=== PATIENT | male | born 1940 | race Asian ===

== ENCOUNTER 2021-05-05 21:24 | Observation (INO) ==
--- NOTE | 2021-05-05 21:50 | Emergency Department Note ---
Impression & Plan Brain TIA, History of atrial fibrillation, Expressive aphasia ED Provider Note NAME: LEANA ATWOOD AGE: 80 SEX: M : 1940 ARRIVES VIA: Ambulance INFORMANT: Patient, ED PROVIDER(S): Faraz Miranda MD Chief Complaint: HPI: Patient presents due to concern for difficulty with speech with the patient states that he knew what to say but had difficulty saying it approximate 1 hour ago for approximate 6 or 7 minutes. Patient denies any fever chills chest pain shortness of breath nausea or vomiting. No recent falls or headaches. The patient does have a history of taking Eliquis for history of A. fib. Patient denies any current symptoms at this time. No prior history of TIA or stroke. Patient denies any alcohol or tobacco use. Patient denies any nausea vomiting. ROS: See HPI for pertinent positives and negatives. A total of 10 systems were reviewed and otherwise negative. Past medical history: See below Surgical history: See below Social history: See below Physical Exam: GENERAL: NAD, wearing a mask, non-toxic. Wearing a Steelers knit cap. EYE EXAM: Normal conjunctiva. PERRL, no anisocoria and EOM's grossly intact w/o pain. OROPHARYNX: Moist mucus membranes. Grossly normal dentition. NECK: Supple, no nuchal rigidity, no adenopathy, non-tender. No signs of meningismus. LUNGS: Clear to auscultation. Normal chest wall mechanics. HEART: NSR, no MRG. ABDOMEN: Abdomen soft, non-tender, normo-active bowel sounds, no masses, no rebound or guarding. BACK: No CVA TTP. SKIN: No rashes and no bruising. UPPER EXTREMITIES: Upper extremities are grossly normal. LOWER EXTREMITIES: Grossly normal, no edema. NEURO EXAM: A&O x3, cranial nerves II-XII grossly intact, normal speech, moves all 4 extremities on command w/o issue. Good finger to nose, no drift, no sensory deficits. Differential diagnoses: Infection, dehydration, metabolic abnormality, hypo/hyperglycemia, electrolyte disturbance, anemia, hypoxia, cardiac sources, intracerebral event, toxicologic, neurologic, as well as other pathologies. Course: Patient was seen and evaluated the bedside. Full history physical exam was performed. EKG interpreted by me Normal sinus rhythm, rate of 65, borderline TN 200 with normal QRS, normal axis, no obvious ST changes, T wave inversion in lead III. Imaging Studies: See Below Cardiac monitoring: An order was placed for continuous cardiac monitoring. The monitor shows a rate of 72 with sinus rhythm. MDM: Patient presented due to concern for brief episode of expressive aphasia. Blood work was obtained along with CT head and CT angiography his head and neck. Patient has a normal white count and hemoglobin. Platelet count is unremarkable. The patient's kidney function is unremarkable with mild hyperglycemia at 125 although this is not a fasting glucose. CT head CT angiography head and neck negative for acute ICH mass dissection or aneurysm. Patient has had no recurrence of symptoms. Given the patient's history of expressive aphasia believe it reasonable for further observation and treatment and to be seen by neurology. I did speak with the on-call hospitalist Dr. Cooney and the patient was admitted to the medicine service. I did convey the recommendation and findings to the patient and the patient is amenable to further treatment. I did offer to speak with his family but he declined. Past Med/Surg History Medical History Atrial fibrillation BPH (benign prostatic hyperplasia) Environmental allergies History of asthma NO INHALER Osteoarthritis Surgical History History of cataract surgery RT/LEFT History of colonoscopy History of endoscopic sinus surgery History of herniorrhaphy Hx of LASIK Hx of transurethral resection of prostate Family History Other No family history of adverse response to anesthesia No family history of bleeding disorder Social History Smoking Status: Never smoker Second Hand Exposure: No; Hx Alcohol Use: Yes Alcohol type: beer Hx Substance Use: No Preferred Language: Mexican Communication Ability: Effective Polysomnographic Technologist Required: No Beliefs That Will Affect Care: None Current Living Situation: Spouse Feels Safe at Home: Yes Assistive Devices: None and Hearing Aid - Left Allergies Allergies Allergy/AdvReac Type Severity Reaction Status Date / Time pollen extracts Allergy Mild Sneezing Verified 05/05/21 22:43 Home Meds Home Medications Medication Instructions Recorded Confirmed qgnqppzs-iuv-rtoih acid 300 1 tab PO QAM 05/28/20 05/05/21 mcg-lycopene 600 mcg-lutein 300 mcg tablet (Centrum Silver Men) potassium gluconate 595 mg (99 mg) 595 mg PO QAM 05/28/20 05/05/21 tablet apixaban 2.5 mg tablet (Eliquis) 2.5 mg PO BID 05/05/21 05/05/21 omega-3 fatty acids 1,000 mg 1,000 mg PO DAILY 05/05/21 05/05/21 capsule Results & Data (ED) Vital Signs Vital Signs - 24 hr 05/05/21 21:46 05/05/21 21:54 05/05/21 21:56 Temperature 36.4 C L Temperature Source Oral Pulse Rate 67 62 Pulse Rate [Apical] 62 Pulse Rhythm Regular Regular Pulse Rhythm [Apical] Regular Pulse Strength Normal Pulse Strength [Apical] Normal Respiratory Rate 23 18 18 Respiratory Effort / Characteristics Non-Labored Nasal Congestion Non-Labored Respiratory Depth Normal Normal Blood Pressure 158/84 H Blood Pressure [Right Arm] 123/71 Blood Pressure Mean 108 Blood Pressure Mean [Right Arm] 88 Blood Pressure Position Lying Blood Pressure Position [Right Arm] Lying Pulse Oximetry 98 97 95 Oxygen Delivery Method Room Air Room Air Room Air Sepsis Recent Fever Within 48 Hours No Sepsis New/Unexplained Change in Mental Status N/A Sepsis Action Taken by Nursing No Action Required Home Medications Current Medication List: was personally reviewed by me Laboratory Data Attestation: I reviewed the patient's lab results. Result diagrams: 05/05/21 21:38 05/05/21 21:38 Lab Results 05/05/21 05/05/21 05/05/21 Range/Units 21:38 21:38 21:38 WBC 6.53 (4.8-10.8) K/uL RBC 4.73 (4.7-6.1) M/uL Hgb 14.3 (14.0-18.0) g/dL Hct 41.9 L (42-52) % MCV 88.6 (80-100) fL MCH 30.2 (25-34) pg MCHC 34.1 (32-36) g/dL RDW Std Deviation 39.0 (36.4-46.3) fL RDW Coeff of Rob 12.1 (11.5-14.5) % Plt Count 258 (130-400) K/uL MPV 10.1 (7.4-10.4) fL Immature Gran % (Auto) 0.2 % Neut % (Auto) 48.7 % Lymph % (Auto) 33.5 % [place] % (Auto) 8.7 % Eos % (Auto) 8.3 % Baso % (Auto) 0.6 % Neut # (Auto) 3.18 (1.4-6.5) K/uL Lymph # (Auto) 2.19 (1.2-3.4) K/uL [place] # (Auto) 0.57 (0.11-0.59) K/uL Eos # (Auto) 0.54 H (0-0.5) K/uL Baso # (Auto) 0.04 (0-0.2) K/uL Immature Gran # (Auto) 0.01 (0.00-0.02) K/uL PT 9.9 (9.0-12.0) Seconds INR 1.0 (0.9-1.1) APTT 26.5 (21.0-31.0) Seconds PTT Ratio 1.0 Sodium 140 (136-145) mmol/L Potassium 4.1 (3.5-5.1) mmol/L Chloride 103 (98-107) mmol/L Carbon Dioxide 31 (21-32) mmol/L Anion Gap 6 (3-11) BUN 15 (6-23) mg/dl Creatinine 0.82 (0.6-1.4) mg/dl Est Cr Clr Drug Dosing 59.2 ml/min Est GFR ( Amer) 95.4 ml/min Est GFR (Non-Af Amer) 82.4 ml/min BUN/Creatinine Ratio 18.3 (10-20) Glucose 130 H (70-99(Fasting)) mg/dl POC Glucose (70-99) mg/dl Calcium 9.5 (8.5-10.1) mg/dl Magnesium 2.0 (1.7-2.4) mg/dl Total Bilirubin 0.3 (0.2-1.0) mg/dl AST 27 (13-39) U/L ALT 16 (7-52) U/L Alkaline Phosphatase 70 (34-104) U/L Troponin I 0.03 (0-0.04) ng/ml Total Protein 6.9 (6.0-8.3) gm/dl Albumin 4.4 (3.4-5.0) gm/dl Globulin 2.5 (2.5-4.0) gm/dl Albumin/Globulin Ratio 1.8 (0.9-2) 05/05/21 Range/Units 22:00 WBC (4.8-10.8) K/uL RBC (4.7-6.1) M/uL Hgb (14.0-18.0) g/dL Hct (42-52) % MCV (80-100) fL MCH (25-34) pg MCHC (32-36) g/dL RDW Std Deviation (36.4-46.3) fL RDW Coeff of Rob (11.5-14.5) % Plt Count (130-400) K/uL MPV (7.4-10.4) fL Immature Gran % (Auto) % Neut % (Auto) % Lymph % (Auto) % [place] % (Auto) % Eos % (Auto) % Baso % (Auto) % Neut # (Auto) (1.4-6.5) K/uL Lymph # (Auto) (1.2-3.4) K/uL [place] # (Auto) (0.11-0.59) K/uL Eos # (Auto) (0-0.5) K/uL Baso # (Auto) (0-0.2) K/uL Immature Gran # (Auto) (0.00-0.02) K/uL PT (9.0-12.0) Seconds INR (0.9-1.1) APTT (21.0-31.0) Seconds PTT Ratio Sodium (136-145) mmol/L Potassium (3.5-5.1) mmol/L Chloride (98-107) mmol/L Carbon Dioxide (21-32) mmol/L Anion Gap (3-11) BUN (6-23) mg/dl Creatinine (0.6-1.4) mg/dl Est Cr Clr Drug Dosing ml/min Est GFR ( Amer) ml/min Est GFR (Non-Af Amer) ml/min BUN/Creatinine Ratio (10-20) Glucose (70-99(Fasting)) mg/dl POC Glucose 125 H (70-99) mg/dl Calcium (8.5-10.1) mg/dl Magnesium (1.7-2.4) mg/dl Total Bilirubin (0.2-1.0) mg/dl AST (13-39) U/L ALT (7-52) U/L Alkaline Phosphatase (34-104) U/L Troponin I (0-0.04) ng/ml Total Protein (6.0-8.3) gm/dl Albumin (3.4-5.0) gm/dl Globulin (2.5-4.0) gm/dl Albumin/Globulin Ratio (0.9-2) Administered Medications Discontinued Medications Ioversol (Optiray 320 125ml) 120 ml IV ONCE ONE Stop: 05/05/21 22:47 Last Admin: 05/05/21 22:47 Dose: 120 ml Documented by: [id number] Imaging Data Radiologist's Impression: CT HEAD: Mucosal thickening in the remaining ethmoid air cells suggesting mild chronic sinusitis. There are signs of previous sinus surgery. No gas fluid levels are seen. There is a trace amount of chronic appearing mucosal thickening in the frontal and left maxillary sinuses. The mastoid air cells are normal. No skull fracture or scalp hematoma is seen. Mild central atrophy and periventricular white matter low density consistent with chronic small vessel disease. There is no evidence of acute large vessel infarct or intra-cranial hemorrhage. CTA HEAD: Mucosal thickening throughout the maxillary and ethmoid sinuses consistent with acute on chronic sinusitis. The distal vertebral and basilar arteries are mildly tortuous but widely patent with no atherosclerotic plaque or stenosis. The distal internal carotid, anterior, middle, and posterior cerebral arteries appear within normal limits. No atherosclerotic plaque, aneurysm, vascular formation, or arterial thrombus is identified CTA NECK: Normal CT angiogram of the neck. Radiologist: Ish Schaeffer MD Discharge Plan Visit Data Chief Complaint: TIA Symptoms Stated Complaint: slurred speech Discharge Problem: Brain TIA, History of atrial fibrillation, Expressive aphasia Patient Disposition: Admitted As Inpatient Forms Stand Alone Forms: My [facility] Prescriptions Prescriptions: No Action potassium gluconate 595 mg (99 mg) Tablet 595 mg PO QAM RF: 0 Centrum Silver Men 300-600-300 mcg Tablet 1 tab PO QAM RF: 0 omega-3 fatty acids 1,000 mg Capsule 1,000 mg PO DAILY RF: 0 Eliquis 2.5 mg tablet 2.5 mg PO BID RF: 0 Referrals Referrals: Brenden Thomson DO [Primary Care Provider] -
[2021-05-05 22:00] LABS: Basophils # (auto) 0.04 K/uL (0-0.2); Basophils % (auto) 0.6 %; Eosinophils # (auto) 0.54 K/uL (0-0.5); Eosinophils % (auto) 8.3 %; Hematocrit (blood only) 41.9 % (42-52); Hemoglobin 14.3 g/dL (14.0-18.0); Immature Granulocytes # (auto) 0.01 K/uL (0.00-0.02); Immature Granulocytes % (auto) 0.2 %; Lymphocytes # (auto) 2.19 K/uL (1.2-3.4); Lymphocytes % (auto) 33.5 %; Mean Corpuscular Hemoglobin 30.2 pg (25-34); Mean Corpuscular Hgb Conc 34.1 g/dL (32-36); Mean Corpuscular Volume 88.6 fL (80-100); Mean Platelet Volume 10.1 fL (7.4-10.4); Monocytes # (auto) 0.57 K/uL (0.11-0.59); Monocytes % (auto) 8.7 %; Neutrophils # (auto) 3.18 K/uL (1.4-6.5); Neutrophils % (auto) 48.7 %; Platelet Count 258 K/uL (130-400); RDW Coefficient of Variation 12.1 % (11.5-14.5); Red Blood Count 4.73 M/uL (4.7-6.1); White Blood Count 6.53 K/uL (4.8-10.8)
[2021-05-05 22:08] LABS: Partial Thromboplastin Time 26.5 Seconds (21.0-31.0); Prothrombin Time 9.9 Seconds (9.0-12.0)
[2021-05-05 22:20] LABS: Albumin Globulin Ratio 1.8 (0.9-2); Albumin Level 4.4 gm/dl (3.4-5.0); BUN Creatinine Ratio 18.3 (10-20); Bilirubin,Total 0.3 mg/dl (0.2-1.0); Calcium 9.5 mg/dl (8.5-10.1); Creatinine Clr Calc Pharmacy 59.2 ml/min; Est GFR (African American) 95.4 ml/min; Est GFR (Non-African American) 82.4 ml/min; Globulin 2.5 gm/dl (2.5-4.0); Potassium 4.1 mmol/L (3.5-5.1); Total Protein 6.9 gm/dl (6.0-8.3)
[2021-05-05 22:21] LABS: Troponin I 0.03 ng/ml (0-0.04)
[2021-05-05] MEDS ORDERED: OPTIRAY 320 125ml IV ONE (22:46)
[2021-05-06] MEDS ORDERED: ACETAMINOPHEN 325 MG TAB PO PRN (02:59)
[2021-05-06] MEDS ORDERED: ONDANSETRON INJ 2 MG/ML 2 ML VIAL IV PRN (02:59)
[2021-05-06] MEDS ORDERED: SODIUM CHLORIDE 0.9% 1000ML 1,000 ML IV SCH (02:59)
[2021-05-06] MEDS ORDERED: NITROGLYCERIN SL 0.4 MG/TAB TAB SL PRN (02:59)
[2021-05-06] MEDS ORDERED: PHARMACIST DISCHARGE MED REC CONSULT PRN (02:59)
[2021-05-06] MEDS ORDERED: GADOBUTROL 65ML VIAL IV ONE (04:29)
[2021-05-06 06:16] LABS: Basophils # (auto) 0.05 K/uL (0-0.2); Eosinophils % (auto) 9.7 %; Hematocrit (blood only) 39.4 % (42-52); Hemoglobin 13.3 g/dL (14.0-18.0); Immature Granulocytes # (auto) 0.01 K/uL (0.00-0.02); Immature Granulocytes % (auto) 0.2 %; Lymphocytes # (auto) 1.56 K/uL (1.2-3.4); Lymphocytes % (auto) 30.2 %; Mean Corpuscular Hgb Conc 33.8 g/dL (32-36); Mean Corpuscular Volume 88.9 fL (80-100); Mean Platelet Volume 10.2 fL (7.4-10.4); Monocytes # (auto) 0.65 K/uL (0.11-0.59); Monocytes % (auto) 12.6 %; Neutrophils % (auto) 46.3 %; Platelet Count 236 K/uL (130-400); RDW Coefficient of Variation 12.3 % (11.5-14.5); RDW Standard Deviation 39.5 fL (36.4-46.3); Red Blood Count 4.43 M/uL (4.7-6.1); White Blood Count 5.17 K/uL (4.8-10.8)
[2021-05-06 06:28] LABS: BUN Creatinine Ratio 20.8 (10-20); Calcium 8.6 mg/dl (8.5-10.1); Chol HDL Ratio 2.8 (0-5); Creatinine Clr Calc Pharmacy 67.5 ml/min; Est GFR (African American) 100.7 ml/min; Est GFR (Non-African American) 86.9 ml/min; Potassium 4.2 mmol/L (3.5-5.1)
[2021-05-06 07:13] LABS: Estimated Average Glucose 120 mg/dl; Hemoglobin A1C 5.8 % (4.5-5.6)
--- NOTE | 2021-05-06 07:40 | CT Scan Report ---
CT OF THE HEAD WITHOUT CONTRAST CLINICAL HISTORY: Stroke Like Symptoms. Slurred speech. COMPARISON STUDY: Sinus CT April 30, 2020. TECHNIQUE: Helical axial images of the head were obtained without IV contrast. Automated exposure con trol was utilized for the study. A dose lowering technique was utilized adhering to the principles o f ALARA. FINDINGS: No acute intracranial hemorrhage, midline shift or mass effect is present. The ventricular system is unremarkable. The basal cisterns are patent. No extra-axial collections are present. There are no findings to suggest acute dural sinus thrombosis or acute territorial infarct. No significant calvarial abnormalities are present. Mild to moderate sinus mucosal thickening is noted. IMPRESSION: No acute intracranial findings. ACT 112: Negative or not required by law. Electronically signed by: Iain Saeed M.D. 05/06/2021 7:38 AM
--- NOTE | 2021-05-06 07:56 | Magnetic Resonance Report ---
MR brain wo/w con CLINICAL HISTORY: tia. Difficulty with speech COMPARISON STUDY: CT brain from 05/05/2021 TECHNIQUE: Multiplanar multisequence images of the brain were performed before and after Gadavist, 6 mL of IV contrast. Diffusion weighted imaging and ADC mapping was also performed. FINDINGS: Extra-axial space: There is no evidence for a subdural hematoma, There are no extra-axial fluid erinn ections. Ventricles and cisterns: The ventricles are mildly dilated bilaterally. There is no evidence for mid line shift or mass effect. Parenchyma: On noncontrast images, there is no evidence for an acute hemorrhage or infarct. No acute diffusion abnormalities are noted on diffusion weighted imaging or ADC mapping. There is normal boudreaux -white differentiation. There is mild cerebral cortical atrophy present. The sulci and gyri appear no rmal without effacement. The midline structures are unremarkable. The posterior fossa structures appe ar normal. On postcontrast images, there is no evidence for enhancing mass lesion. Osseous structures: There is mucosal thickening seen throughout all of the paranasal sinuses charact eristic of pansinusitis. No fluid levels are present. The mastoid air cells are well aerated. Soft tissues: No focal soft tissue abnormalities are identified. IMPRESSION: No acute intracranial abnormalities. Mild cerebral cortical atrophy. Pansinusitis. ACT 112: Negative or not required by law. Electronically signed by: Julius Duckworth M.D. 05/06/2021 7:55 AM
--- NOTE | 2021-05-06 08:00 | History and Physical Report ---
DATE OF ADMISSION: 05/05/2021. CHIEF COMPLAINT: Transient expressive aphasia. 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 At that time, workup included a negative carotid duplex, negative MRI/MRA of the brain and echocardiogram. Although there was some atrial septum noted and aneurysm on echocardiogram, there was no shunt noted. Left atrium was noted to be moderately dilated as per Cardiology notes. He had monitor placed , which showed paroxysmal atrial fibrillation, 5% AFib burden, and he was placed on Eliquis, which the patient says he is taking, and today on 05/05/2021 evening he had a pizza and he slept for half an hour and around 8:00 or 8:30, when his son called he lifted the phone, but he was not able to speak for 7 to 8 minutes. He gave the phone to his and after 7 to 8 minutes, he was fine, back to his normal self. Currently asymptomatic. The initial workup with CTA of the head and neck and CT of the head was unremarkable. Resting comfortably, hemodynamically stable. The patient states he is very active. He goes to the gym every day. He jogs and on alternate days he lifts weights. He says he takes care of himself very well. He has some mild headache. He has some issues with the throat. He is not able to tolerate spices anymore. No blurred visions, no earache, no runny nose, no nausea, no vomiting, no chest pain, no shortness of breath. Currently, no cough, no fever, no chills, no abdominal pain. Normal bowel and bladder movements. No swelling in the legs. The patient is COVID vaccinated and boosted. ALLERGIES: POLLEN EXTRACTS. PAST MEDICAL HISTORY: As mentioned above. PAST SURGICAL HISTORY: Colonoscopy, cystoscopy, knee arthroscopy, needle punch biopsy of the prostate, TURP, inguinal hernia repair. MEDICATIONS: The patient is on Eliquis 2.5 mg p.o. b.i.d., Centrum silver 1 tablet daily, omega 3 fatty acid 1000 mg p.o. daily, potassium gluconate 595 mg p.o. a.m. FAMILY HISTORY: Significant for father had renal failure, fatal CT at age 75; brother has heart attack; another brother has asthma; mother in sleep at age of 87. SOCIAL HISTORY: , no smoking. Alcohol, one to two beers a week. No drug use. REVIEW OF SYSTEMS: As per HPI. Rest of the review of systems is negative. PHYSICAL EXAMINATION: GENERAL: The patient is of moderate build, not in acute distress. VITAL SIGNS: Temperature 36.4, pulse 62, respiratory rate 18, blood pressure 123/71, oxygen 95% on room air. HEENT: Pupils equal, round, and reactive to light. Oral mucosa moist. NECK: No JVD. No neck masses. CARDIOVASCULAR: S1 and S2 heard. Regular rate and rhythm. No murmur, no gallop. RESPIRATORY SYSTEM: Normal AP diameter. No accessory muscle use. No wheezing, no crackles. ABDOMEN: Soft, bowel sounds present, nontender, no distention. CENTRAL NERVOUS SYSTEM: Alert and oriented. Speech is clear. No facial droop seen. Able to raise his brow. Power 5/5 in all extremities. No pronator drift. Coordination of movements normal. Sensation is intact. Position sense intact. EXTREMITIES: No edema, no erythema. LABORATORY DATA: WBC 6.5, hemoglobin 14.3, hematocrit 41.9, platelets 258. PT 9.9, INR 1, APTT 26.5. Sodium 140, potassium 4.1, chloride 103, bicarbonate 31, BUN 15, creatinine 0.8, serum glucose 130, calcium 9.5, magnesium 2, total bilirubin 0.3, AST 27, ALT 16, alkaline phosphatase 70. Troponin I of 0.03. IMAGING DATA: Preliminary reports : CT of the neck, no acute findings. CT of the head, no acute findings. CT of the head without contrast, mild chronic sinusitis. EKG: Normal sinus rhythm at a rate of 65, no acute ST changes seen. ASSESSMENT AND PLAN: This is an 80-year-old male who presents with transient ischemic attack. 1. Transient expressive aphasia: Currently, workup with CT of the head and CTA of the head and neck is unremarkable. We will do full stroke workup with MRI scan, echocardiogram, neurology consult. The patient is on Eliquis for paroxysmal atrial fibrillation, which will be continued. Follow the lipid profile. Speech evaluation and monitor in the tele floor. 2. Paroxysmal atrial fibrillation: The pateint has history of transient left eye blindness in April 2020. At that time, workup was all negative. Monitor was placed which was showing paroxysmal atrial fibrillation, for which Eliquis was placed. Follow up with cardiology. 3. Deep venous thrombosis prophylaxis: On Eliquis. DISPOSITION: Closely monitor in tele floor. Level 1 full code. Expect to discharge home and follow with family doctor. Job ID: [id number] [facility]
--- NOTE | 2021-05-06 08:05 | CT Scan Report ---
CT ANGIOGRAPHY OF THE NECK WITH CONTRAST CLINICAL HISTORY: Stroke Like Symptoms COMPARISON STUDY: No previous studies for comparison. Technique: CT angiography of the carotid and vertebral arteries was obtained using Optiray and 3D rec onstruction on an independent workstation. NASCET criteria was utilized. Automated exposure control was utilized for the study. A dose lowering technique was utilized adhering to the principles of ALA RA. Findings: No significant abnormalities are identified within the lung apices. No cervical lymphadenop athy is present. No acute cervical spine fracture. The bilateral common carotid, cervical internal ca rotid and vertebral arteries are patent. There is no dissection or stenosis within these vessels. No significant atherosclerotic plaque is present. CTA of the head will be reported separately. There is no aneurysm within the neck. Incidental note is made of moderate mucosal thickening within the sinuse s. 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 IMPRESSION: Unremarkable CTA of the neck. No stenosis or dissection. ACT 112: Negative or not required by law. Electronically signed by: Iain Saeed M.D. 05/06/2021 8:04 AM
--- NOTE | 2021-05-06 08:18 | CT Scan Report ---
CTA ANGIOGRAPHY OF THE HEAD CLINICAL HISTORY: Stroke Like Symptoms COMPARISON STUDY: No previous studies for comparison. TECHNIQUE: Helical axial images of the head were obtained following uneventful intravenous administr ation of 120 cc of Optiray. Sagittal and coronal reconstructions were viewed as well as maximal inten sity projections on an independent 3-D workstation. Automated exposure control was utilized for the study. A dose lowering technique was utilized adhering to the principles of ALARA. CT DOSE: 970.34 mGy.cm FINDINGS: Moderate mucosal thickening of the sinuses is noted. No acute intracranial hemorrhage, midl ine shift or mass effect is present. Ventricular system is unremarkable. Basal cisterns are patent. T here are no extra-axial collections. The bilateral M1, M2, A1 and A2 segments are patent. There is no central vessel occlusion. No intracranial aneurysm is identified. Left vertebral artery is dominant. Posterior circulation is intact. There is no dissection within the intracranial vessels. Left hydrate thickener operator ior commuting artery is present. IMPRESSION: No intracranial aneurysm. No central vessel occlusion. Unremarkable CTA of the head. ACT 112: Negative or not required by law. Electronically signed by: Iain Saeed M.D. 05/06/2021 8:17 AM
[2021-05-06] MEDS ORDERED: APIXABAN 2.5 MG TAB PO SCH (09:00)
[2021-05-06] MEDS ORDERED: CEROVITE ADV FORMULA TAB PO SCH (09:00)
--- NOTE | 2021-05-06 09:28 | Cardiology Consultation ---
Date of Consultation May 06, 2021 Assessment & Plan (1) Brain TIA: (2) History of atrial fibrillation: This is the patient's first neurologic episode since his episode of amaurosis fugax noted a year ago. He states that he has been adherent to Eliquis therapy 2.5 milligrams twice d aily. The standard dose of Eliquis for stroke prophylaxis in the setting of paroxysmal atrial fibrillation is 5 milligrams by mouth twice daily. The doses adjusted to 2.5 milligrams twice daily if the patient has 2 of the 3 risk factors: 1.Age over 80 years old 2. creatinine greater than 1.5 3. weight less than 60 kilograms. This patient has a creatinine of less than 1.5 milligrams/deciliter, is 80 years old, and his weight has been hovering just above 60 kilograms, 132 pounds, 60.1 kilograms most recent outpatient measurement, and 60.3 kilograms as recorded on 05/06/2021 while in the hospital. His dose had previously therefore been reduced down to 2.5 milligrams twice daily in an effort of caution since his weight was just on the threshold of the less than 60 kilogram criteria. Discussed options such as continuing Eliquis 2.5 milligrams twice daily and adding 81 milligrams daily of aspirin, or increasing the Eliquis dose to 5 milligrams twice daily. After further discussion in a process of shared decision making, the patient agreed to proceed with Eliquis 5 milligrams twice daily which by the most strict definition of the dosing guidelines is the appropriate dose for him. As noted, he has not had any further atrial fibrillation episodes on telemetry overnight last night, most recent repeat o monitor and storage bin tender had been in December,, with recurrent atrial fibrillation noted, 4% atrial fibrillation burden. The predominant rhythm however was sinus bradycardia 57 beats per minute, and therefore he is not on AV lora tate. He is not typically have any palpitation related symptoms with his atrial fibrillation events. In 2020 at the time his initial neurology workup, treatment with atorvastatin was recommended. But the patient had yet started. I have therefore prescribed 10 milligrams of atorvastatin which I recommend the patient takes. I recommend pt Discontinue his fish oil in favor of treatment with Eliquis and atorvastatin instead. His LDL cholesterol is 111 milligrams/deciliter, will plan on titrating statin for goal of less than 70 milligrams/deciliter. Neurology has been consulted, unless there is any additional recommendations for further workup or treatment, noted at the time of that Consult. , patient is stable from cardiac standpoint for discharge home. Per patient's request I have sent prescriptions for 90 day supplies of the Eliquis 5 mg BID and atorvastatin 10 mg daily to his outpt [facility] pharmacy via the [facility] electronic medical record. History of Present Illness Attending Physician: Marcio Keane MD History of Present Illness Mr Whitney Is an 80-year-old male seen in cardiology consultation per the request of Dr. Cooney for the evaluation of TIA with history of paroxysmal atrial fibrillation. The patient states that he was in his normal state of health yesterday. I had actually seen him yesterday afternoon, as he accompanied his spouse was also a patient of mine to her routine office visit. He states he felt well yesterday afternoon at the time of my discussion with him and his spouse, and he actually exercised 3 miles on the treadmill yesterday feeling well. Last evening, he had been eating a pizza meal, and attempted have a telephone conversation with his son. The patient apparently had difficulty finding any words for an interval of 7-8 minutes. He states he could not talk and have a conversation. His symptoms subsequently resolved spontaneously. He presented to the emergency department for further evaluation. Telemetry reveals sinus rhythm without recurrent atrial fibrillation. Blood pressure well controlled. CT angiogram of the head and neck vessels was within normal limits, and follow-up MRI revealed no evidence of acute stroke, with findings of chronic microvascular changes consistent with the patient's age. At the time my assess ment, the patient is completely asymptomatic and he is eager for discharge. The patient had been seen in routine outpatient cardiology follow-up by the undersigned in December, at which time stable cardiac signs and symptoms were noted. He was a retired civil engineering designer. In April, he had a brief episode of left-sided blindness consistent with amaurosis fugax. Workup included a negative carotid duplex, negative MRI/ MRI of the brain an echocardiogram. The echocardiogram revealed an aneurysmal interatrial septum with no evidence of interatrial shunt. He went on to have a 2 week Zio patch monitor that revealed paroxysmal atrial fibrillation with a 5% atrial fibrillation burden he was subsequently started on Eliquis and he remains on this medication. Allergies Allergy/AdvReac Type Severity Reaction Status Date / Time pollen extracts Allergy Mild Sneezing Verified 05/05/21 22:43 Home Medications Medication Instructions Recorded Confirmed Type drblhmhh-pkg-tlnav acid 300 1 tab PO QAM 05/28/20 05/05/21 History mcg-lycopene 600 mcg-lutein 300 mcg tablet (Centrum Silver Men) potassium gluconate 595 mg (99 mg) 595 mg PO QAM 05/28/20 05/05/21 History tablet apixaban 2.5 mg tablet (Eliquis) 2.5 mg PO BID 05/05/21 05/05/21 History omega-3 fatty acids 1,000 mg 1,000 mg PO DAILY 05/05/21 05/05/21 History capsule Patient History Medical History Atrial fibrillation BPH (benign prostatic hyperplasia) Environmental allergies History of asthma NO INHALER Osteoarthritis Surgical History History of cataract surgery RT/LEFT History of colonoscopy History of endoscopic sinus surgery History of herniorrhaphy Hx of LASIK Hx of transurethral resection of prostate Family History Other No family history of adverse response to anesthesia No family history of bleeding disorder Social History Smoking Status: Never smoker Second Hand Exposure: No; Hx Alcohol Use: Yes Alcohol type: beer Hx Substance Use: No Preferred Language: Mongolian Communication Ability: Effective Activated Sludge Attendant Required: No Beliefs That Will Affect Care: None Current Living Situation: Spouse Feels Safe at Home: Yes Assistive Devices: None and Hearing Aid - Left Review of Systems Review of Systems: All systems reviewed & are unremarkable except as noted in HPI & below Physical Exam Constitutional: WD/WN, vitals as above Respiratory: normal respiratory effort, lungs clear to auscultation Cardiovascular: RRR, no murmur, no edema Gastrointestinal (Abdomen): normal bowel sounds, soft, nontender, no hepatosplenomegaly Neurologic: PERRL, EOMI, accommodation nl, no face palsy, no dysarthria Results & Data ([facility]) Vital Signs (Past 12 Hours) Vital Signs Temp Pulse Pulse Resp BP BP Pulse Ox 05/06/21 03:36 53 L 16 87/72 L 96 05/06/21 00:30 54 L 14 99 05/06/21 00:20 54 L 19 99 05/06/21 00:10 56 L 16 98 05/06/21 00:00 54 L 12 119/70 98 05/05/21 23:50 54 L 15 97 05/05/21 23:40 55 L 19 96 05/05/21 23:30 54 L 14 119/71 98 05/05/21 23:20 55 L 19 98 05/05/21 23:10 55 L 31 H 99 05/05/21 23:00 60 20 122/69 99 05/05/21 22:50 59 L 29 H 98 05/05/21 22:44 66 19 132/72 95 05/05/21 22:20 59 L 14 98 05/05/21 22:10 63 16 95 05/05/21 22:00 61 14 111/73 05/05/21 21:56 62 18 123/71 95 05/05/21 21:55 62 18 123/71 96 05/05/21 21:54 62 18 97 05/05/21 21:50 64 19 97 05/05/21 21:49 65 20 98 05/05/21 21:46 36.4 C L 67 23 158/84 H 98 Pulse Ox 05/06/21 03:36 96 05/06/21 00:30 05/06/21 00:20 05/06/21 00:10 05/06/21 00:00 05/05/21 23:50 05/05/21 23:40 05/05/21 23:30 05/05/21 23:20 05/05/21 23:10 05/05/21 23:00 05/05/21 22:50 05/05/21 22:44 05/05/21 22:20 05/05/21 22:10 05/05/21 22:00 05/05/21 21:56 05/05/21 21:55 05/05/21 21:54 05/05/21 21:50 05/05/21 21:49 05/05/21 21:46 Laboratory Results Cardiac Enzymes 05/05/21 Range/Units 21:38 AST 27 (13-39) U/L Troponin I 0.03 (0-0.04) ng/ml Coagulation 05/05/21 Range/Units 21:38 PT 9.9 (9.0-12.0) Seconds APTT 26.5 (21.0-31.0) Seconds Lipids LDL cholesterol 111 milligrams/deciliter. 05/06/21 Range/Units 05:41 Triglycerides 66 (0-150) mg/dl Cholesterol 192 (0-200) mg/dl HDL Cholesterol 68 mg/dl Cholesterol/HDL Ratio 2.8 (0-5) CBC 05/05/21 05/06/21 Range/Units 21:38 05:41 WBC 6.53 5.17 (4.8-10.8) K/uL RBC 4.73 4.43 L (4.7-6.1) M/uL Hgb 14.3 13.3 L (14.0-18.0) g/dL Hct 41.9 L 39.4 L (42-52) % Plt Count 258 236 (130-400) K/uL Neut # (Auto) 3.18 2.40 (1.4-6.5) K/uL Lymph # (Auto) 2.19 1.56 (1.2-3.4) K/uL [place] # (Auto) 0.57 0.65 H (0.11-0.59) K/uL Eos # (Auto) 0.54 H 0.50 (0-0.5) K/uL Baso # (Auto) 0.04 0.05 (0-0.2) K/uL Comprehensive Metabolic Panel 05/05/21 05/06/21 Range/Units 21:38 05:41 Sodium 140 139 (136-145) mmol/L Potassium 4.1 4.2 (3.5-5.1) mmol/L Chloride 103 106 (98-107) mmol/L Carbon Dioxide 31 28 (21-32) mmol/L BUN 15 15 (6-23) mg/dl Creatinine 0.82 0.72 (0.6-1.4) mg/dl Glucose 130 H 94 (70-99(Fasting)) mg/dl Calcium 9.5 8.6 (8.5-10.1) mg/dl AST 27 (13-39) U/L ALT 16 (7-52) U/L Alkaline Phosphatase 70 (34-104) U/L Total Protein 6.9 (6.0-8.3) gm/dl Albumin 4.4 (3.4-5.0) gm/dl Intake and Output 05/05/21 05/06/21 05/06/21 22:59 06:59 14:59 Intake Total 0 / 0 Balance 0 / 0 Intake: Oral 0 / 0 Other: Weight 60.3 kg 60.3 kg Weight Measurement Method Built in [facility] Diagnostic Findings Neuro imaging studies as summarized in HPI. echocardiogram performed today 05/06/2021 and reviewed independently revealed stable findings, normal left ventricular wall motion, mild aortic valve calcification without aortic valve stenosis or significant regurgitation. Trace mitral regurgitation. 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 EKG performed 05/06/2021 and reviewed independently reveals sinus bradycardia 54 beats per minute, first-degree AV block, compared to the previous tracing performed 05/05/2021, no significant interval change.
[2021-05-06] MEDS ORDERED: APIXABAN 5 MG TABLET PO SCH (09:30)
--- NOTE | 2021-05-06 12:22 | Neurology Consultation ---
Date of Consultation May 06, 2021 Assessment & Plan (1) Brain TIA: 1. MRI no acute findings 2. CTA head/neck- no acute findings 3. EF 55% no ASD 4. PT/OT/speech for discharge needs 5. optimize HTN HLD LDL <70 follow with neurology 4-6 weeks after discharge. Amy Parrish MD (2) History of atrial fibrillation: 1. cardiology - increased Eliquis from 2.5 mg BID to 5 mg BID (3) Expressive aphasia: 1. transient now resolved Supervising Physician Co-Signing Physician Notes I have seen and discussed above patient with Dr Amy Parrish, neurology. Discussed patient with Amy Rodriguez patient was discharged prior to my seeing him. Reviewed the patient's MRI which shows no acute infarction. Patient with known atrial fibrillation had a 7-minute episode of aphasia. MRI noncontributory. Patient is on low-dose Eliquis and aspirin. LDL is 111. This is likely an embolic transient ischemic attack given the presence of aphasia. I agree with Dr. Diop's plan to increase the dose of Eliquis. Goal LDL would be 70 or less patient can see us post discharge and follow-up. Amy Parrish MD History of Present Illness Reason for Consultation: tia. 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 Left atrium was noted to be moderately dilated as per Cardiology notes.He was monitored and p Afib was seen and he was placed on Eliquis, 05/05/2021 he had an episode of trying to talk on the phone but was unable to speak and after about 7 to 8 minutes, he was fine, back to his normal self. He did have a mild headache. He wants to go home he is feeling back to his baseline and has been walking to the bathroom. denies CP, SOB, abdominal pain one sided weakness, numbness tingling, N, V. Allergies Allergy/AdvReac Type Severity Reaction Status Date / Time pollen extracts Allergy Mild Sneezing Verified 05/05/21 22:43 Home Medications Medication Instructions Recorded Confirmed Type lsoykzkf-lne-sxhnb acid 300 1 tab PO QAM 05/28/20 05/05/21 History mcg-lycopene 600 mcg-lutein 300 mcg tablet (Centrum Silver Men) potassium gluconate 595 mg (99 mg) 595 mg PO QAM 05/28/20 05/05/21 History tablet omega-3 fatty acids 1,000 mg 1,000 mg PO DAILY 05/05/21 05/05/21 History capsule amoxicillin 500 mg-potassium 1 tab PO BIDM #14 tab 05/06/21 Rx clavulanate 125 mg tablet apixaban 2.5 mg tablet (Eliquis) 5 mg PO BID #0 tab 05/06/21 05/05/21 Rx atorvastatin 20 mg tablet 20 mg PO HS #30 tab 05/06/21 Rx Patient History Medical History Atrial fibrillation BPH (benign prostatic hyperplasia) Environmental allergies History of asthma NO INHALER Osteoarthritis Surgical History History of cataract surgery RT/LEFT History of colonoscopy History of endoscopic sinus surgery History of herniorrhaphy Hx of LASIK Hx of transurethral resection of prostate Family History Other No family history of adverse response to anesthesia No family history of bleeding disorder Social History Smoking Status: Never smoker Second Hand Exposure: No; Hx Alcohol Use: Yes Alcohol type: beer Hx Substance Use: No Preferred Language: Syriac Communication Ability: Effective Cna Hha Required: No Beliefs That Will Affect Care: None marital status: Current Living Situation: Spouse Feels Safe at Home: Yes Assistive Devices: None Review of Systems Review of Systems: All systems reviewed & are unremarkable except as noted in HPI & below Physical Exam Physical Exam: Physical Exam: Constitutional: appearance nourished, healthy and normal Ears, Nose, Mouth and Throat: mucous membranes moist, no injection and skin normal, eyes normal Cardiovascular: irregular Respiratory: course BS Musculoskeletal: no peripheral edema and good distal pulses Skin: no stigmata of neurocutaneous disease noted and normal and intact Eyes: extraocular muscles intact (EOMI) and pupils equal, round and reactive to light (PERRL) NEUROLOGIC EXAMINATION: Mental status: Alert and interactive Oriented to person Speech fluent with no evidence of aphasia Cranial Nerves smile eye brow raise symmetric Reflexes: Deep tendon reflexes were symmetrical and graded 2/5. Sensory: intact to light and cool touch Coordination: finger to nose Gait/Stance: Posture lying in bed Motor: Negative for pronator drift of out stretched arms with eyes closed. Strength: hand solar technician biceps triceps 5/5 bilaterally hip flex plantar flex ext 5/5 Results & Data ([facility]) Vital Signs (Past 12 Hours) Vital Signs Pulse Pulse Resp BP Pulse Ox Pulse Ox 05/06/21 12:09 55 L 16 127/70 98 05/06/21 10:40 52 L 14 126/78 100 05/06/21 03:36 53 L 16 87/72 L 96 96 05/06/21 00:30 54 L 14 99 Laboratory Results Abnormal lab results 05/05/21 05/05/21 05/05/21 Range/Units 21:38 21:38 22:00 RBC (4.7-6.1) M/uL Hgb (14.0-18.0) g/dL Hct 41.9 L (42-52) % [place] # (Auto) (0.11-0.59) K/uL Eos # (Auto) 0.54 H (0-0.5) K/uL BUN/Creatinine Ratio (10-20) Glucose 130 H (70-99(Fasting)) mg/dl POC Glucose 125 H (70-99) mg/dl Hemoglobin A1c (4.5-5.6) % 05/06/21 05/06/21 05/06/21 Range/Units 05:41 05:41 05:41 RBC 4.43 L (4.7-6.1) M/uL Hgb 13.3 L (14.0-18.0) g/dL Hct 39.4 L (42-52) % [place] # (Auto) 0.65 H (0.11-0.59) K/uL Eos # (Auto) (0-0.5) K/uL BUN/Creatinine Ratio 20.8 H (10-20) Glucose (70-99(Fasting)) mg/dl POC Glucose (70-99) mg/dl Hemoglobin A1c 5.8 H (4.5-5.6) % Diagnostic Findings CT head-No acute intracranial findings. CTA head-No intracranial aneurysm. No central vessel occlusion. Unremarkable CTA of the head. CTA neck- Unremarkable CTA of the neck. No stenosis or dissection. MRi brain-No acute intracranial abnormalities. Mild cerebral cortical atrophy. Pansinusitis. TTE- EF 55-60% no ASD
[2021-05-06] MEDS ORDERED: ATORVASTATIN 10 MG TAB PO SCH (12:30)
[2021-05-06] MEDS ORDERED: AMOXICILLIN/CLAVULANATE 500 MG TAB PO SCH (13:45)
--- NOTE | 2021-05-06 15:40 | Hospitalist Progress Note ---
Date of Service May 06, 2021 Assessment & Plan (1) Brain TIA: Plan: Suspected Embolic TIA MRI Brain:No acute intracranial abnormalities. Mild cerebral cortical atrophy. Pansinusitis. Neck CTA:Unremarkable CTA of the neck. No stenosis or dissection. Head CTA:No intracranial aneurysm. No central vessel occlusion. Unremarkable CTA of the head. ECHO reviewed Appreciate neurology, cardiology input Eliquis dose increased to 5 mg twice daily Symptoms currently resolved PT OT evaluation completed LDL:111 Recommended patient to be started on statin--patient currently not interested Cardiology/neurology/patient: Discussed about options starting aspirin 81 mg daily but patient preferred to increase Eliquis dose to 5 mg twice daily Advised patient to follow-up with neurology in 4 to 6 weeks Pansinusitis H/O sinus surgery in the past as per patient. Started on Augmentin Advised to follow-up with ENT as outpatient Paroxysmal atrial fibrillation: Sinus bradycardia on monitor No AV lora blocking agents secondary to above Continue Eliquis for anticoagulation Appreciate cardiology input DVT Px: On Eliquis. Code Status Full Code Disposition Home Admission and Anticipated Discharge Date Admission Date: May 06, 2021 Subjective Patient is seen and examined at bedside States feeling well today Slurred speech resolved Denies any focal weakness, facial deformity, chest pain, shortness of breath, dizziness, nausea, abdominal pain Offers no other complaints Eager to get discharged Discussed with neuro neurology today Review of Systems Review of Systems: All systems reviewed & are unremarkable except as noted in Subjective Physical Exam Physical Exam: Physical Exam: Vitals signs as noted above General Appearance:Moderately built and nourished, no apparent distress Head: normocephalic, Atraumatic Eyes: normal inspection, EOMI Neck: supple, Trachea midline Respiratory/Chest: Normal breath sounds, CTA Cardiovascular: S1, S2, No murmur Abdomen/GI:Soft, Non tender, Bowel sounds present Extremities/Musculoskeletal:normal inspection, no edema Neurologic/Psych:AAOX3, grossly no focal neurological deficits Skin: normal color, warm Results & Data Results & Data ([facility]) Vital Signs (Past 12 Hours) Vital Signs Pulse Resp BP Pulse Ox 05/06/21 14:16 59 L 18 127/70 100 05/06/21 12:09 55 L 16 127/70 98 05/06/21 10:40 52 L 14 126/78 100 Laboratory Results Short CBC 05/05/21 05/06/21 Range/Units 21:38 05:41 WBC 6.53 5.17 (4.8-10.8) K/uL Hgb 14.3 13.3 L (14.0-18.0) g/dL Hct 41.9 L 39.4 L (42-52) % Plt Count 258 236 (130-400) K/uL BMP 05/05/21 05/06/21 21:38 05:41 Sodium 140 139 Potassium 4.1 4.2 Chloride 103 106 Carbon Dioxide 31 28 BUN 15 15 Creatinine 0.82 0.72 Glucose 130 H 94 Calcium 9.5 8.6 Cardiac Enzymes 05/05/21 Range/Units 21:38 Troponin I 0.03 (0-0.04) ng/ml Liver Function 05/05/21 Range/Units 21:38 Total Bilirubin 0.3 (0.2-1.0) mg/dl AST 27 (13-39) U/L ALT 16 (7-52) U/L Alkaline Phosphatase 70 (34-104) U/L Albumin 4.4 (3.4-5.0) gm/dl
[2021-05-06] MEDS ORDERED: STROKE PATIENT DISCHARGE STA (15:46)
--- NOTE | 2021-05-06 16:55 | Discharge Summary ---
Date of Service May 06, 2021 Admission HPI Per Admitting Provider CHIEF COMPLAINT: Transient expressive aphasia. 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 At that time, workup included a negative carotid duplex, negative MRI/MRA of the brain and echocardiogram. Although there was some atrial septum noted and aneurysm on echocardiogram, there was no shunt noted. Left atrium was noted to be moderately dilated as per Cardiology notes. He had monitor placed , which showed paroxysmal atrial fibrillation, 5% AFib burden, and he was placed on Eliquis, which the patient says he is taking, and today on 05/05/2021 evening he had a pizza and he slept for half an hour and around 8:00 or 8:30, when his son called he lifted the phone, but he was not able to speak for 7 to 8 minutes. He gave the phone to his and after 7 to 8 minutes, he was fine, back to his normal self. Currently asymptomatic. The initial workup with CTA of the head and neck and CT of the head was unremarkable. Resting comfortably, hemodynamically stable. The patient states he is very active. He goes to the gym every day. He jogs and on alternate days he lifts weights. He says he takes care of himself very well. He has some mild headache. He has some issues with the throat. He is not able to tolerate spices anymore. No blurred visions, no earache, no runny nose, no nausea, no vomiting, no chest pain, no shortness of breath. Currently, no cough, no fever, no chills, no abdominal pain. Normal bowel and bladder movements. No swelling in the legs. The patient is COVID vaccinated and boosted. Admission Exam Per Admitting Provider PHYSICAL EXAMINATION: GENERAL: The patient is of moderate build, not in acute distress. VITAL SIGNS: Temperature 36.4, pulse 62, respiratory rate 18, blood pressure 123/71, oxygen 95% on room air. HEENT: Pupils equal, round, and reactive to light. Oral mucosa moist. NECK: No JVD. No neck masses. CARDIOVASCULAR: S1 and S2 heard. Regular rate and rhythm. No murmur, no gallop. RESPIRATORY SYSTEM: Normal AP diameter. No accessory muscle use. No wheezing, no crackles. ABDOMEN: Soft, bowel sounds present, nontender, no distention. CENTRAL NERVOUS SYSTEM: Alert and oriented. Speech is clear. No facial droop seen. Able to raise his brow. Power 5/5 in all extremities. No pronator drift. Coordination of movements normal. Sensation is intact. Position sense intact. EXTREMITIES: No edema, no erythema. Principal Diagnosis Transient ischemic attack Atrial fibrillation Sinusitis Discharge Data Allergies Allergy/AdvReac Type Severity Reaction Status Date / Time pollen extracts Allergy Mild Sneezing Verified 05/05/21 22:43 Consultations 05/05/21 23:47 ED Decision to Admit Stat 05/06/21 08:00 Consult Neurology Routine Ordered Studies 05/05/21 21:39 CT angio head w con Urgent CT angio neck with con Urgent CT head/brain wo con Urgent 05/06/21 02:59 MR brain wo/w con Urgent Hospital Course (1) Brain TIA: Suspected Embolic TIA MRI Brain:No acute intracranial abnormalities. Mild cerebral cortical atrophy. Pansinusitis. Neck CTA:Unremarkable CTA of the neck. No stenosis or dissection. Head CTA:No intracranial aneurysm. No central vessel occlusion. Unremarkable CTA of the head. ECHO reviewed Appreciate neurology, cardiology input Eliquis dose increased to 5 mg twice daily Symptoms currently resolved PT OT evaluation completed LDL:111 Recommended patient to be started on statin--patient currently not interested Cardiology/neurology/patient: Discussed about options starting aspirin 81 mg daily but patient preferred to increase Eliquis dose to 5 mg twice daily Advised patient to follow-up with neurology in 4 to 6 weeks Pansinusitis H/O sinus surgery in the past as per patient. Started on Augmentin Advised to follow-up with ENT as outpatient Paroxysmal atrial fibrillation: Sinus bradycardia on monitor No AV lora blocking agents secondary to above Continue Eliquis for anticoagulation Appreciate cardiology input DVT Px: On Eliquis. Code Status Full Code Disposition Home Total Time Total Time Spent Total Time Spent (In Minutes): 40 minutes Discharge Plan Discharge Items Patient Disposition: Home - Self-Care Reason For Visit: TIA Discharge Diagnosis: Transient ischemic attack Atrial fibrillation Sinusitis Activity: Per Instructions section Exercise/Sports: Gradually increase as tolerated Non-emergency contact: Primary Care Provider, Staffing Director and Neurologist Call non-emergency contact if: you have any medication questions, your symptoms worsen, your pain is concerning for you and you have a fever Follow-up/Referrals: Brenden Thomson DO [Primary Care Provider] - (Date & Time 05/11/2021 11:40 AM Provider Brenden Thomson DO Department [facility] ) Diet: Heart Healthy Add Attending Provider Instructions: Follow-up with your primary care physician Dr. Thomson on 05/11/2021 11:40 AM Follow-up with your neurologist Dr. Amy Parrish in 4 to 6 weeks as recommended Follow-up with your welder helper Dr. Guallpa as advised Seek immediate medical attention if your symptoms reoccur or worsen Please take all medications as instructed on discharge list below. Please call if you have any questions or problems. You can reach a [facility] hospitalist on duty at [facility] 24 hours a day by calling [phone] Risk Factors for Stroke: You can reduce your chances of stroke by working with your medical provider to adopt a healthy lifestyle. Some specific ways to lower your chance of stroke are: * If you are a smoker, now is the time to stop smoking cigarettes * If you are diabetic, improve the control of your blood sugars * Avoid excessive amounts of alcohol * Control high blood pressure * Lose weight if you are overweight * Be sure to lead an active lifestyle * Eat a healthy diet low in salt, cholesterol and fat You should know about other risk factors for stroke that you are unable to control. These include: * Age 55 years or older * Male gender * Certain racial groups: , or / * Family History of Stroke, Mini stroke or Heart Attack * Sickle Cell Disease Follow Up: It is important for you to keep your follow up appointments with your medical provider. Who to Call and When: Medical Emergencies: Call 911 immediately if you experience any of the following warning signs and symptoms of Stroke: * Sudden numbness or weakness of the face, arm or leg, especially on one side of the body * Sudden confusion, trouble speaking or understanding * Sudden trouble seeing in one or both eyes * Sudden trouble walking, dizziness, loss of balance or coordination * Sudden severe headache with no cause Do not delay calling 911 if you experience any warning signs or symptoms of a stroke. Delay in seeking medical attention may affect what treatments can be given to you. . Pending Studies at Discharge: No Stand-Alone Forms: My [facility], Smoking Cessation Medications and DC Order Prescriptions: New amoxicillin-pot clavulanate 500-125 mg Tablet 1 tab PO BIDM Qty: 14 RF: 0 atorvastatin 20 mg tablet 20 mg PO HS Qty: 30 RF: 1 Continued potassium gluconate 595 mg (99 mg) Tablet 595 mg PO QAM RF: 0 Centrum Silver Men 300-600-300 mcg Tablet 1 tab PO QAM RF: 0 omega-3 fatty acids 1,000 mg Capsule 1,000 mg PO DAILY RF: 0 Changed Eliquis 2.5 mg tablet 5 mg PO BID Qty: 0 RF: 0 Discharge Orders: Discharge Order (Routine); Ordered 05/06/21 Ordered By: Marcio Keane Admission Data Admit Date/Time: 05/06/21 01:05 Attending Provider: Marcio Keane Admit Provider: Kem Cooney Primary Care Provider: Brenden Thomson Other Providers: Lion Guallpa ; Kem Cooney ; Amy Rodriguez ; John Platt ; Amy Parrish ; Carlos Prasad Other Interventions: Discharge Summary Assessment (RN) Last Done: 05/06/21 16:09
--- NOTE | 2021-05-07 06:15 | Electrocardiogram Report ---
Test Reason : Blood Pressure : / mmHG Vent. Rate : 065 BPM Atrial Rate : 065 BPM P-R Int : 200 ms QRS Dur : 102 ms QT Int : 442 ms P-R-T Axes : 051 -05 008 degrees QTc Int : 459 ms Normal sinus rhythm Normal ECG When compared with ECG of 05-JUN-2020 10:37, Questionable change in QRS axis Confirmed by Christophe Peña ([id number]) on 05/07/2021 6:15:41 AM Referred By: REFERRED SELF Confirmed By:Christophe Peña
--- NOTE | 2021-05-08 06:23 | Electrocardiogram Report ---
Test Reason : Blood Pressure : / mmHG Vent. Rate : 054 BPM Atrial Rate : 054 BPM P-R Int : 208 ms QRS Dur : 090 ms QT Int : 460 ms P-R-T Axes : 042 -18 017 degrees QTc Int : 436 ms Sinus bradycardia Otherwise normal ECG When compared with ECG of 05-MAY-2021 21:32, No significant change was found Confirmed by Christophe Peña ([id number]) on 05/08/2021 6:23:16 AM Referred By: REFERRED SELF Confirmed By:Christophe ePña
== END 2021-05-06 16:09 | disposition home or self-care (01) ==
LOC: ED 21:24 → EDINP 05-06 01:05 → INTOOBSV 05-06 01:05 → EDINP 05-06 03:14